=== PATIENT | female | born 1995 ===

== ENCOUNTER 2021-07-04 16:13 | Outpatient (CLI) | payer OTHER ==
[2021-07-04 16:36] LABS: BASOPHILS % (AUTO) 0.4 %; HCT - HEMATOCRIT 37.6 % (37.0-47.0); HGB - HEMOGLOBIN 12.5 g/dL (12.0-16.0); LYMPHOCYTES # (AUTO) 1.5 10^3/uL (1.5-3.5); LYMPHOCYTES % (AUTO) 21.1 %; MEAN CORPUSCULAR HGB CONC 33.2 g/dL (32.0-36.0); MEAN CORPUSCULAR VOLUME 87.2 fL (81.0-99.0); MONOCYTES # (AUTO) 0.3 10^3/uL (0.0-1.0); MONOCYTES % (AUTO) 4.7 %; NEUTROPHILS # (AUTO) 5.1 10^3/uL (1.5-6.6); NEUTROPHILS % (AUTO) 73.5 %; PLT - PLATELET COUNT 244 10^3/uL (130-450); RED BLOOD COUNT 4.31 10^6/uL (4.20-5.40); RED CELL DISTRIBUTION WIDTH 13.7 % (12.0-15.0)
[2021-07-05 10:06] LABS: HEPATITIS B SURFACE ANTIGEN NON-REACTIVE (NON-REACTIVE); HEPATITIS C ANTIBODY NON-REACTIVE (NON-REACTIVE)
[2021-07-05 15:56] LABS: HIV AG/AB 4TH GEN NON-REACTIVE (NON-REACTIVE)
== END 2021-07-04 16:14 | disposition home or self-care (01) ==
LOC: LAB 16:13
PROVIDERS: ATTEND Obstetrics & Gynecology
DX: Z36.89 Encounter for other specified antenatal screening (principal)
CPT/HCPCS: 36415; 85025; 86592; 86762; 86787; 86803; 86850; 86900; 86901; 87340; 87389

== ENCOUNTER 2021-07-09 15:22 | Outpatient (CLI) | payer OTHER ==
--- NOTE | 2021-07-09 17:21 | Ultrasound Report ---
PROCEDURE: OB First Trimester INDICATIONS: +PREG, VB OUTSIDE/PRIOR DATING DATA: Last menstrual period (LMP): 04/28/2021. LMP-based estimated date of delivery (KRISTIN): 02/02/2022. First dating scan (date and location): 07/09/2021. Estimated date of delivery (KRISTIN) from first dating scan: 01/25/2022. The below data below was generated using the ultrasound KRISTIN of 01/25/2022 TECHNIQUE: Real-time scanning was performed of the fetus and maternal pelvic organs, with image documentation. Only transabdominal imaging was acquired. COMPARISON: None. FINDINGS: Embryo: Single living intrauterine gestation with estimated sonographic gestational age of approxima tely 11 weeks and 3 days based off crown-rump length measurement of 4.66 cm. There is a small subchor ionic hemorrhage measuring 5.6 x 1.9 x 1.9 cm. Previously described anterior uterine fibroid reported on outside imaging measures 1.4 x 1.3 x 1.5 cm. Normal yolk sac is seen. Heart rate: 162 bpm. Measurement variability in dating: +/- 4 weeks by LMP, +/- 7 days by mean sac diameter (use before 6 weeks gestation if crown-rump length not able to be measured), +/- 5 days by crown-rump length (6-12 weeks gestation). Maternal organs: Ovaries demonstrate presence of a simple appearing 2.1 cm left ovarian cyst. Otherw ise, no suspicious ovarian/adnexal mass lesions. IMPRESSION: Single living intrauterine gestation with estimated sonographic gestational age of approximately 11 w eeks and 3 days based off crown-rump length measurement. Estimated date of delivery is approximately 01/25/2022. Subchorionic hemorrhage visualized. Recommend close clinical surveillance. Small anterior uterine fibroid. Recommend follow-up with routine second trimester anatomic screening survey. Reviewed by: Hi Lipscomb MD on 07/09/2021 5:20 PM PST Approved by: Hi Lipscomb MD on 07/09/2021 5:20 PM PST Station ID: [id number]
== END 2021-07-09 15:23 | disposition home or self-care (01) ==
LOC: DI 15:22
PROVIDERS: ATTEND Obstetrics & Gynecology
DX: Z32.01 Encounter for pregnancy test, result positive (principal); O46.91 Antepartum hemorrhage, unspecified, first trimester; Z3A.11 11 weeks gestation of pregnancy